=== PATIENT | female | born 1955 | race Caucasian/White ===

== ENCOUNTER → 2019-11-01 14:57 | Outpatient (BNVA) | payer BC, SELFPAY | PROVIDERS: Family Provider Nurse Practitioner; PCP Nurse Practitioner; Visit Provider Nurse Practitioner Family | DX: N30.20 Other chronic cystitis without hematuria (principal) | CPT/HCPCS: 81001 ==

== ENCOUNTER → 2020-07-23 16:05 | Outpatient (BNVA) | payer MEDICARE, BC, SELFPAY | PROVIDERS: Family Provider Nurse Practitioner; PCP Nurse Practitioner; Visit Provider Nurse Practitioner Family | DX: Z20.828 Contact with and (suspected) exposure to other viral communicable diseases (principal) | CPT/HCPCS: 87635 ==

== ENCOUNTER → 2021-02-13 11:40 | Outpatient (BNVA) | payer MEDICARE, BC, SELFPAY | PROVIDERS: Family Provider Nurse Practitioner; PCP Nurse Practitioner; Visit Provider Family Medicine | DX: E05.90 Thyrotoxicosis, unspecified without thyrotoxic crisis or storm (principal); Z00.00 Encounter for general adult medical examination without abnormal findings | CPT/HCPCS: 80053; 80061; 84439; 84443; 84481; 85025 ==

== ENCOUNTER 2021-02-25 14:42 | Outpatient (CLI) | payer MEDICARE, BC, SELFPAY ==
--- NOTE | 2021-02-25 15:30 | MM_ITS ---
WS: [id number] BILATERAL DIGITAL SCREENING MAMMOGRAPHY WITH CAD CLINICAL INFORMATION: Z12.31 - Encounter for screening mammogram for malignant neoplasm of breast HISTORY: Screening mammogram. No current complaints. COMPARISON: TECHNIQUE: Bilateral CC and MLO views. FINDINGS: Scattered fibroglandular densities bilaterally. No suspicious focal mass, asymmetry, calcifications, or architectural distortion. No evidence of malignancy. MM/[place] [id number] IMPRESSION: BI-RADS: 2-Benign FOLLOW UP: 1 Year Follow-up Recommend return to annual screening mammography.
== END 2021-02-25 14:43 | disposition home or self-care (01) ==
LOC: RADSHAW 14:49
PROVIDERS: PCP Family Medicine; Visit Provider Family Medicine
DX: Z12.31 Encounter for screening mammogram for malignant neoplasm of breast (principal)
CPT/HCPCS: 77067

== ENCOUNTER → 2021-11-13 09:03 | Outpatient (BNVA) | payer MEDICARE, BC, SELFPAY | PROVIDERS: PCP Family Medicine; Visit Provider Nurse Practitioner Family | DX: N30.20 Other chronic cystitis without hematuria (principal) | CPT/HCPCS: 81003 ==

== ENCOUNTER 2021-12-31 16:11 | Outpatient (CLI) | payer MEDICARE, BC, SELFPAY ==
--- NOTE | 2021-12-31 16:00 | MR_ITS ---
WS: [id number] MRA HEAD TECHNIQUE: Axial 3-D TOF images obtained with axial images and axial, sagittal, and coronal 2-D refor matted images. CLINICAL INFORMATION: Z98.890 - Other specified postprocedural states COMPARISON: MRI November 25, 2013 FINDINGS: Prior RIGHT pterional craniotomy with ACOM aneurysm clipping. Susceptibility artifact from aneurysm c lips obscures some images. No evidence of recurrent or residual ACOM aneurysm. Stable tiny LEFT intra cranial ICA is unchanged. Patent LEFT posterior communicating artery fills the LEFT MCA territory. No rmal vascularity to the FROYLAN and RIGHT MCA territory. Aplastic LEFT A1 segment. Dominant distal LEFT vertebral artery. Basilar artery is patent. Normal vascularity to the [employer] territ ory bilaterally. MR/MR angio head wo con [id number] IMPRESSION: 1. 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 Susceptibilit y artifact from the aneurysm clips. No evidence of recurrent or residual aneury sm. 2. Small LEFT intracranial ICA unchanged from the prior examinations. 3. Patent LEFT posterior communicating artery supplies the LEFT MCA territory unchanged. 4. No other significant changes from previous.
== END 2021-12-31 16:12 | disposition home or self-care (01) ==
LOC: RAD 16:14
PROVIDERS: PCP Family Medicine; Visit Provider Nurse Practitioner
DX: Z98.890 Other specified postprocedural states (principal); Z86.79 Personal history of other diseases of the circulatory system
CPT/HCPCS: 70544

== ENCOUNTER → 2022-02-05 13:48 | Outpatient (BNVA) | payer MEDICARE, BC, SELFPAY | PROVIDERS: PCP Family Medicine; Visit Provider Nurse Practitioner Family | DX: N30.20 Other chronic cystitis without hematuria (principal) | CPT/HCPCS: 81003; 87086; 88112 ==

== ENCOUNTER → 2022-02-10 10:45 | Outpatient (BNVA) | payer MEDICARE, BC, SELFPAY | PROVIDERS: PCP Family Medicine; Visit Provider Nurse Practitioner | DX: E05.90 Thyrotoxicosis, unspecified without thyrotoxic crisis or storm (principal); Z13.6 Encounter for screening for cardiovascular disorders | CPT/HCPCS: 80053; 80061; 84439; 84443; 84481; 85025 ==

== ENCOUNTER 2022-03-10 12:40 | Outpatient (CLI) | payer MEDICARE, BC, SELFPAY ==
[2022-03-10] MEDS: iohexol 300 mg/mL 50 mL Btl IV (12:58)
--- NOTE | 2022-03-10 13:45 | CT_ITS ---
WS: [id number] CT ABDOMEN PELVIS TECHNIQUE: Noncontrast CT of the abdomen and contrast-enhanced CT of the abdomen and pelvis with shyam nal and sagittal reformatted images. CLINICAL INFORMATION: GROSS HEMATURIA COMPARISON: None. DLP: 3127.[address] scans at [facility] use at least one of these dose optimization techniques: automated e xposure control; mA and/or kV adjustment per patient size (includes targeted exams where dose is matc hed to clinical indication); or iterative reconstruction. FINDINGS: No obstructing renal or ureteral calculi. Pelvic phleboliths. Normal renal parenchymal enhancement. B ilateral simple renal cysts the largest in the LEFT upper pole measuring 4.1 x 3.3 CM. Normal RIGHT u reteral excretion on the delayed images. Poor filling of the LEFT ureter distally with suggestion of a filling defect in the distal LEFT ureter image 69 series 6. No significant contrast distal to this area in the LEFT ureter. Recommend further evaluation with ureteroscopy. Lung bases are well aerated. Normal hepatic parenchymal enhancement. A few incidental liver cysts. No rmal gallbladder. Small cyst or hemangiomas in the spleen. Normal GE junction. Normal pancreatic pare nchymal enhancement. Adrenal glands are normal. Normal celiac and SMA. Normal portal vein and splenic vein. No periaortic lymphadenopathy. No evidence of high-grade small or large bowel obstruction. Normal lubna iber abdominal aorta. CT/CT abdomen pelvis wo/w [id number] IMPRESSION: 1. Normal bilateral renal parenchymal enhancement. 2. Bilateral renal cysts largest LEFT upper pole measuring 4.0 x 3.2 CM. 3. Suggestion of a filling defect in the distal LEFT ureter in the pelvis as d escribed above best seen on the delayed axial imaging image 69 series 6. No con trast distal to this area. Recommend further evaluation with ureteroscopy. 4. Small hepatic cysts. A few low-attenuation lesions in the spleen likely due to cysts or hemangiomas. 5. No other acute findings.
== END 2022-03-10 12:41 | disposition home or self-care (01) ==
LOC: RAD 12:42
PROVIDERS: PCP Family Medicine; Visit Provider Nurse Practitioner Family
DX: R31.0 Gross hematuria (principal); N28.1 Cyst of kidney, acquired; K76.89 Other specified diseases of liver; D73.89 Other diseases of spleen
CPT/HCPCS: 52000; 74178; 81003; 99213

== ENCOUNTER 2022-03-26 11:40 | Outpatient (CLI) | payer MEDICARE, BC, SELFPAY ==
--- NOTE | 2022-03-26 11:55 | MM_ITS ---
WS: [id number] BILATERAL 3D TOMOSYNTHESIS DIGITAL SCREENING MAMMOGRAPHY WITH CAD CLINICAL INFORMATION: Z12.39 - Encounter for other screening for malignant neop... HISTORY: Screening mammogram. No current complaints. COMPARISON: February 25, 2021 TECHNIQUE: Bilateral CC and MLO views. FINDINGS: Scattered fibroglandular densities bilaterally. 4 mm ovoid nodular density along the posterior nipple line LEFT breast measuring 4 mm Recommend further evaluation with spot compression views and ultrasound. This appears new from previo us. RIGHT breast is unremarkable and unchanged. MM/[place] [id number] IMPRESSION: BI-RADS: 0-Incomplete: Need additional imaging evaluation FOLLOW UP: Need Additional Imaging Recommend LEFT breast diagnostic mammography spot compression views and ultraso und in further evaluation.
== END 2022-03-26 11:41 | disposition home or self-care (01) ==
LOC: RAD 11:40
PROVIDERS: PCP Nurse Practitioner; Visit Provider Nurse Practitioner
DX: Z12.31 Encounter for screening mammogram for malignant neoplasm of breast (principal)
CPT/HCPCS: 77063; 77067

== ENCOUNTER 2022-04-29 09:35 | Outpatient (CLI) | payer MEDICARE, BC, SELFPAY ==
--- NOTE | 2022-04-29 09:50 | MM_ITS ---
WS: [id number] LEFT 3D TOMOSYNTHESIS DIGITAL MAMMOGRAPHY WITH CAD CLINICAL INFORMATION: R92.8 - Other abnormal and inconclusive findings on diagn... COMPARISON: 04.16 TECHNIQUE: 3 views of the left breast were obtained. FINDINGS: Scattered fibroglandular densities of the left breast. Stable previously described 4 mm ovoid nodular density along the posterior nipple line. Ultrasound is pending. ULTRASOUND BREAST LEFT TECHNIQUE: Ultrasound left breast focused area of concern. CLINICAL INFORMATION: R92.8 - Other abnormal and inconclusive findings on diagn... COMPARISON: None. FINDINGS: Ultrasound LEFT breast at the 8 and 9:00 position demonstrates incidental ductal ectasia. Debris with in a few dilated ducts likely accounts for the mammographic findings. Findings are probably benign. N o other suspicious lesions. No lesions to target for biopsy. MM/[place] [id number] IMPRESSION: BI-RADS: 3-Probably Benign FOLLOW UP: 6 Month Follow-up RECOMMEND 6 MONTH FOLLOW-UP LEFT DIAGNOSTIC MAMMOGRAPHY AND ULTRASOUND to NIKKI AGUILERA.
--- NOTE | 2022-04-29 14:42 | XR_ITS ---
WS: [email or web address] KUB, AP view, 04/29/2022 Clinical Data: stones Comparison: None. Findings: No abnormal intraabdominal masses or calcifications are seen. There is no dilatated small bowel or ev idence of obstruction. There is fecal material throughout the colon. There are phleboliths in the right side of the true pel vis. XR/XR KUB [id number] Impression: Negative KUB.
== END 2022-04-29 09:36 | disposition home or self-care (01) ==
PROVIDERS: PCP Nurse Practitioner; Referring Provider Urology; Visit Provider Nurse Practitioner
DX: R92.8 Other abnormal and inconclusive findings on diagnostic imaging of breast (principal); R92.2 Inconclusive mammogram; R31.0 Gross hematuria; N30.20 Other chronic cystitis without hematuria; R93.41 Abnormal radiologic findings on diagnostic imaging of renal pelvis, ureter, or bladder
CPT/HCPCS: 74018; 76642; 77061; 99213

== ENCOUNTER 2022-05-07 05:45 | Day surgery (SDC) | payer MEDICARE, BC, SELFPAY ==
[2022-05-06 10:14] VITALS: BMI 30.2
[2022-05-07] VITALS (8 sets, daily range): BP systolic 127–166; BP diastolic 71–96; PULSE 63–96; RESP 12–18; TEMP 36.2–36.6; O2SAT 96–100
--- NOTE | 2022-05-07 | SCC_ITS ---
Procedure done: 1. Cystoscopy with left retrograde ureteropyelogram 2. Left ureteroscopy, no stent 18.1 seconds of fluoroscopic guidance, for a cumulative dose of 3.72 mGy, was provided to Dr. Carranza by the radiology department. C-arm images of the abdomen were saved for the patient's permanent record. [facility]
--- NOTE | 2022-05-07 05:47 | SC_ITS ---
WS: [id number] C-arm fluoroscopy for left ureterogram and left renal stent insertion. Clinical Data: Left ureteral filling defect, planned ureteroscopy Comparison: None. Findings: Dr. Carranza performed a left ureterogram and insertion of left ureteral catheter. SC/C-arm FL for Urology Impression: Left ureterogram.
[2022-05-07] MEDS: sodium chloride 0.9% 1,000 ML 30 ML IV (06:25)
[2022-05-07] MEDS: diphenhydrAMINE 50 mg/mL SDV 1mL 12.5 MG IVP (06:42)
--- NOTE | 2022-05-07 06:50 | W.PM.OPSUD ---
Surgery/Procedure H&P Update DATE OF PROCEDURE: May 07, 2022 DATE H&P PERFORMED: 04/29/22 H&P UPDATE INFORMATION: I have reviewed H&P completed within last 30 days, I have examined patient prior to procedure, No changes to prior documentation and H&P is in [facility] [place] on date indicated PREOP DIAGNOSIS: Filling defect left distal ureter, gross hematuria PLANNED PROCEDURE: Operation Date: 05/07/22 07:00 Proposed Procedures p CYSTOSCOPY LEFT RETROGRADE URETEROSCOPY POSSIBLE BIOPSY FULGURATION STENT [id number],R310.0R93.41(Not Applicable) - Brennan Carranza MD s Retrograde Pyelogram(Left) - Brennan Carranza MD s Ureteroscopy(Left) - Brennan Carranza MD s Ureteral Stent Placement(Left) - Brennan Carranza MD
--- NOTE | 2022-05-07 06:54 | P.ANESASSM_ITS ---
Pre-Anesthetic Assessment Height/Weight: Height 1.57 m Weight 74.843 kg Temp Pulse Resp BP Pulse Ox 97.8 F 75 16 166/92 96 05/07/22 06:10 05/07/22 06:10 05/07/22 06:10 05/07/22 06:10 05/07/22 06:10 Preop Diagnosis: Filling defect left distal ureter, gross hematuria Operation Date: 05/07/22 07:00 Proposed Procedures p CYSTOSCOPY LEFT RETROGRADE URETEROSCOPY POSSIBLE BIOPSY FULGURATION STENT [id number],R310.0R93.41(Not Applicable) - Brennan Carranza MD s Retrograde Pyelogram(Left) - MD magy Brooks Ureteroscopy(Left) - Brennan Carranza MD s Ureteral Stent Placement(Left) - Brennan Carranza MD Familial anesthetic complications: PONV per patient Was Beta Hudson taken within 24 hours: N/A Was Clonidine taken within 24 hours: N/A Last intake: Intake Last Liquid Date 05/07/22 Last Liquid Time 00:00 Last Solid Date 05/06/22 Last Solid Time 19:00 Social No alcohol and No tobacco Exam alert, oriented x 3, clear to auscultation bilaterally and regular rate & rhythm Airway Submandibular: within normal limits Cervical ROM: within normal limits Mallampati: Class II Dentition: chipped Comments: Comments: Multiple chipped upper central and lateral incisors Pulmonary None reported CV/HEM None reported METS > 4 Hematuria Hepatic None reported GI None reported Metabolic Thyroid Disease (Long standing well controlled hyperthyroidism ) [facility] [place] None reported Neuropsych None reported Anesthetic Plan ASA status: 2 Anesthesia: Anesthesia Evaluation and General Other: We discussed risk and benefits of general anesthesia including PONV, sore throat (sometimes severe), corneal abrasion, positioning and peripheral nerve injuries, life threatening allergic reaction, post operative ICU admission requiring prolonged intubation, aspiration, stroke, heart attack, , and rare incidences of recall. Patient consents to proceed with general anesthesia. Risk of > 500 ml blood loss (7ml/kg in children): No Medications/Allergies Home Medications Medication Instructions Recorded Confirmed Last Taken Type Livan-Assimilate 500 mg PO DAILY 11/01/19 05/07/22 05/06/22 History Nuero Mag 288 mg PO DAILY 11/01/19 05/07/22 05/06/22 History PS Caps 100 mg PO DAILY 11/01/19 05/07/22 05/06/22 History cholecalciferol (vitamin D3) 125 5,000 unit PO DAILY 11/01/19 05/07/22 05/06/22 History mcg (5,000 unit) capsule salmon oil 1,000 mg-omega-3 fatty 1 cap PO DAILY 11/01/19 05/07/22 04/30/22 History acids 210 mg capsule turmeric root extract 500 mg 500 mg PO DAILY cap 11/01/19 05/07/22 05/06/22 History capsule Magnesium Taurate 250 mg PO DAILY 11/14/20 05/07/22 05/06/22 History glutamine 500 mg capsule 500 mg PO DAILY 11/14/20 05/07/22 05/06/22 History (L-Glutamine) methimazole 5 mg tablet 5 mg PO DAILY #90 tab 02/11/22 05/07/22 05/06/22 Rx cefuroxime axetil 500 mg tablet 500 mg PO BID #60 tab 02/20/22 05/07/22 05/06/22 Rx vitamin B complex 1 cap PO DAILY 05/07/22 05/07/22 05/06/22 History Allergies Allergy/AdvReac Type Severity Reaction Status Date / Time codeine Allergy ADR-Nausea Verified 05/07/22 06:00 divalproex sodium Allergy KIDNEY PAIN Verified 05/07/22 06:00 [From Depakote] hydrocodone Allergy NAUSEA, Verified 05/07/22 06:00 ALTERED MENTAL STATUS sulfamethoxazole Allergy ALGY-Rash Verified 05/07/22 06:00 [From Septra] trimethoprim [From Septra] Allergy ALGY-Rash Verified 05/07/22 06:00 Current Medications Generic Name Dose Route Start Last Admin Trade Name Freq PRN Reason Stop Dose Admin Diphenhydramine HCl 12.5 mg 05/07/22 05:48 05/07/22 06:42 Diphenhydramine 50 Mg/Ml Sdv 1ml IVP 12.5 mg ONCE PRN Administration ANESTHESIA PFSH Anesthesia Medical History Chronic cystitis Occasional remote acute cystitis episodes with development of more chronic cystitis type symptoms summer 2015. Marked improvement on antibiotics but not complete resolution and increasing symptoms over time off of antibiotics. Significant delay prior to treatment. Glaucoma Diagnosed in 2019 and is controlled with eyedrops. She does follow-up with an insurance checker. Gross hematuria Hyperthyroidism Currently on methimazole prescribed by Dr. Adria Hernandez in [place] No pertinent past medical history Patient denies history of: PE/DVT/clotting disorders, asthma, lung, liver heart, kidney disease, or diabetes. PCP: FERNANDO Mccoy Surgical History History of surgery for cerebral aneurysm 2011--open surgery to her skull performed in [facility] History of tonsillectomy At age 20 Family History Mother Hypertension Heart disease Breast cancer Diagnosed around age 70 Father Hypertension Sister Hypertension Breast cancer Diagnosed after age 50 Colon cancer Brother Hypertension Hyperlipidemia Denies family history of Ovarian cancer Diabetes Uterine cancer Thyroid condition Stroke Social History Smoking and tobacco status: never smoked Second hand smoke exposure: No Smoking risk assessment/counseling performed?: No Alcohol intake: never Desire information about alcohol rehabilitation?: No Counseling given: No Desire information about substance/drug rehabilitation?: No Counseling given: No Adopted: No Caregiver/support person: No Lives independently: Yes Household members: spouse Marital status: service: No Current occupational status: retired Current occupational exposures/hazards: No History of recent travel: No Current gender identity: Female Additional social history: - Tobacco Use: Denies current or past use Drug Use: Denies Alcohol Use: Denies Work/Study Status: Retired RN; used to work as a school nurse Data Anesthesia Cardiac Studies: No Data to Display
--- NOTE | 2022-05-07 06:57 | PM.OP ---
Operative Report Date of procedure: May 07, 2022 Pre-op diagnosis: Filling defect left distal ureter, gross hematuria Post-op diagnosis: Normal left distal ureter on ureteroscopy and retrograde Procedure done: 1. Cystoscopy with left retrograde ureteropyelogram 2. Left ureteroscopy, no stent Implants: None Specimens removed/disposition: None Pathology: None Surgeon: Tere Anesthesia: General Estimated blood loss: None Urine output: Not measured Complications: None Findings: 1. Normal left retrograde ureteropyelogram and ureteroscopy. No evidence of intraluminal mass or lesion. Brief History: Cheri is a very pleasant 66-year-old white female with a history of CHRONIC CYSTITIS and subsequent history of GROSS HEMATURIA. Traditional work-up was performed regarding the hematuria. Cystoscopy was normal. Physical exam was normal. Cytology and culture were nonpathologic. CT scan no was interpreted as having a soft tissue filling defect in the left ureter. This was not a definitive finding but certainly cannot be ruled out and for that reason she is admitted now for outpatient cystoscopy, retrograde, ureteroscopy, and possible biopsy. Procedure: After routine preoperative evaluation examination and obtaining of informed consent she was taken to the operating suite on 05/07/2022 where general anesthesia was administered without difficulty after appropriate timeout was performed, SCDs confirmed to be functioning, preoperative antibiotics administered, beta-dash protocol confirmed. Prepped and draped in usual sterile fashion in dorsolithotomy position paying careful attention to avoiding pressure points. 21 Taiwanese cystoscope with 30 degree lens was introduced into urethra meatus and advanced into the bladder under videoscopy. Bladder was systematically examined and again found to be normal. An 8 Taiwanese cone-tip catheter was intubated into the left ureteral orifice for left retrograde ureteropyelogram demonstrating: Grossly normal left ureter. A flexible tip guidewire was then passed up the left ureter and a 7 Taiwanese offset semirigid ureteroscope was easily advanced over the guidewire into the distal ureter and advanced to about the level of the pelvic vessels well above the area of concern. The wire was removed and then the ureter distal to that point was carefully inspected and there was no mucosal abnormality identified. Scope was removed and then repassed confirming both an entry and exit to have no concerning findings. The scope was removed, the bladder drained, the procedure completed. She tolerated the procedure well without complications and was awakened in the operating room and returned to PACU in stable condition. PLANS: 1. Anticipate discharge from outpatient surgery 2. Provide some pain medication if needed for renal colicky symptoms that might occur related to distal ureteral edema from the scope 3. Follow-up in about 3 to 4 months in the office in follow-up of cystitis.
[2022-05-07] MEDS: levofloxacin-dextrose 5 % 500 MG/100 ML PREMIX 100 MG IV (07:00)
[2022-05-07] MEDS: iohexol 300 mg/mL 50 mL Btl XX (07:27)
--- NOTE | 2022-05-07 12:44 | ANE.PACU2 ---
Inpatient post-anesthesia follow up: Airway intact: Yes Vital signs: Temperature 98 F Pulse Rate 63 Respiratory Rate 16 Blood Pressure 141/71 Pulse Oximetry 96 Oxygen Delivery Me thod Room Air Oxygen Flow Rate 6 Fraction of Inspir ed Oxygen Hydration adequate: Yes Nausea and vomiting: No Pain level: 1 Mental status: Baseline
== END 2022-05-07 09:00 | disposition home or self-care (01) ==
PROVIDERS: PCP Nurse Practitioner; Visit Provider Urology
PROC: 0TJB8ZZ Inspection of Bladder, Via Natural or Artificial Opening Endoscopic (ICD-10-PCS; CPT 52000; principal; 2022-05-07 07:00)
PROC: (CPT 74420; 2022-05-07 07:00)
PROC: 0TJ98ZZ Inspection of Ureter, Via Natural or Artificial Opening Endoscopic (ICD-10-PCS; CPT 52351; 2022-05-07 07:00)
DX: R31.0 Gross hematuria (principal); R93.41 Abnormal radiologic findings on diagnostic imaging of renal pelvis, ureter, or bladder; E03.9 Hypothyroidism, unspecified
CPT/HCPCS: 52351; 76000; J1100; J1200; J1956; J2405; J2704; J3010; J3490; J7030; Q9967

== ENCOUNTER → 2022-06-09 12:03 | Outpatient (BNVA) | payer MEDICARE, BC, SELFPAY | PROVIDERS: PCP Nurse Practitioner; Visit Provider Nurse Practitioner Family | DX: M16.11 Unilateral primary osteoarthritis, right hip (principal); M25.551 Pain in right hip | CPT/HCPCS: 73502 ==

== ENCOUNTER → 2022-06-12 14:47 | Outpatient (BNVA) | payer MEDICARE, BC, SELFPAY | PROVIDERS: PCP Nurse Practitioner; Visit Provider Urology | DX: N30.20 Other chronic cystitis without hematuria (principal); R31.0 Gross hematuria | CPT/HCPCS: 81003; 99213 ==

== ENCOUNTER → 2022-06-20 09:42 | Outpatient (BNVA) | payer MEDICARE, BC, SELFPAY | PROVIDERS: PCP Nurse Practitioner; Visit Provider Orthopaedic Surgery | DX: M16.11 Unilateral primary osteoarthritis, right hip (principal) | CPT/HCPCS: 99202 ==

== ENCOUNTER 2022-07-31 07:54 | Outpatient (CLI) | payer MEDICARE, BC, SELFPAY ==
--- NOTE | 2022-07-31 08:00 | MR_ITS ---
WS: [id number] MRI RIGHT HIP without CONTRAST. COMPARISON: Radiographs 06/09/2022 Multiplanar, multisequence imaging is performed without contrast. Moderate narrowing with loss of cartilage and mild osteophytosis at the RIGHT hip joint. There is a s mall amount of marrow edema in the superior posterior RIGHT femoral head with loss of cartilage and f issuring along the cortical surface. There is a small subchondral cyst in the superior acetabulum. Ad ditional subcortical edema and cystic changes along the medial and posterior acetabulum. There is vinicius y mild increased signal involving the RIGHT lateral labrum suspicious for focal tear.There is a small hypertrophic osteophyte extending from the anterior RIGHT femoral head and neck junction. Osteophyti c protrusion measures 10 x 7 mm. There is only mild narrowing of the LEFT hip joint. No associated marrow edema. SI joints are negativ e. No pelvic mass. MR/MR hip RT wo con* [id number] IMPRESSION: 1. Moderate osteoarthritic changes involving the RIGHT hip joint. Loss of cart ilage with marrow edema and small subchondral cysts. 2. Additional subchondral cystic changes involving the acetabulum. 3. Hypertrophic osteophyte measuring 10 x 7 mm projects anterior from the RIGH T femoral head neck junction. 4. Small labral tear versus intrasubstance degeneration.
== END 2022-07-31 07:55 | disposition home or self-care (01) ==
LOC: RAD 07:55
PROVIDERS: PCP Nurse Practitioner; Visit Provider Nurse Practitioner Family
DX: M16.11 Unilateral primary osteoarthritis, right hip (principal); M25.751 Osteophyte, right hip
CPT/HCPCS: 73721

== ENCOUNTER → 2022-08-28 12:08 | Outpatient (BNVA) | payer MEDICARE, BC, SELFPAY | PROVIDERS: PCP Nurse Practitioner; Visit Provider Nurse Practitioner | DX: E05.90 Thyrotoxicosis, unspecified without thyrotoxic crisis or storm (principal) | CPT/HCPCS: 84443 ==

== ENCOUNTER → 2022-11-11 09:22 | Outpatient (BNVA) | payer MEDICARE, BC, SELFPAY | PROVIDERS: PCP Nurse Practitioner; Visit Provider Urology | DX: N30.20 Other chronic cystitis without hematuria (principal); R31.0 Gross hematuria | CPT/HCPCS: 81003; 99213 ==

== ENCOUNTER 2022-12-10 08:34 | Outpatient (CLI) | payer MEDICARE, OTHER, SELFPAY ==
--- NOTE | 2022-12-10 08:51 | MM_ITS ---
WS: [id number] LEFT 3D TOMOSYNTHESIS DIGITAL MAMMOGRAPHY WITH CAD CLINICAL INFORMATION: R92.8 - Other abnormal and inconclusive findings on diagn... HISTORY: Six-month follow-up COMPARISON: April 29, 2022 TECHNIQUE: 3 views of the left breast were obtained. FINDINGS: Scattered fibroglandular densities of the left breast. Focal 4 mm previously described ovoid nodular density difficult to discern today. Breast parenchyma is otherwise unchanged in appearance. Persisten t ductal ectasia deep to the LEFT areola. Ultrasound described below. ULTRASOUND BREAST LEFT TECHNIQUE: Ultrasound left breast focused area of concern. CLINICAL INFORMATION: R92.8 - Other abnormal and inconclusive findings on diagn... FINDINGS: Ultrasound LEFT breast 8:00 to 9 position again demonstrates ductal ectasia with intraductal debris. Hypoechoic ovoid lesion previously described has slightly increased in size today and appears more we ll circumscribed. Today this measures 8.4 x 6.4 x 4.4 mm compared to 6.9 x 4.5 x 4.8 mm. This is tall er than wide on some images and is indeterminate. Considering persistence and increase in size recommend further evaluation with ultrasound-guided biop sy. MM/[place] [id number] IMPRESSION: BI-RADS: 4-Suspicious Finding-Biopsy Should Be Considered FOLLOW UP: US Guided Biopsy Recommended Recommend ultrasound-guided biopsy of the hypoechoic LEFT breast lesion at the 9:00 position.
--- NOTE | 2022-12-10 09:30 | US_ITS ---
WS: [email or web address] LEFT 3D TOMOSYNTHESIS DIGITAL MAMMOGRAPHY WITH CAD CLINICAL INFORMATION: R92.8 - Other abnormal and inconclusive findings on diagn... HISTORY: Six-month follow-up COMPARISON: April 29, 2022 TECHNIQUE: 3 views of the left breast were obtained. FINDINGS: Scattered fibroglandular densities of the left breast. Focal 4 mm previously described ovoid nodular density difficult to discern today. Breast parenchyma is otherwise unchanged in appearance. Persisten t ductal ectasia deep to the LEFT areola. Ultrasound described below. ULTRASOUND BREAST LEFT TECHNIQUE: Ultrasound left breast focused area of concern. CLINICAL INFORMATION: R92.8 - Other abnormal and inconclusive findings on diagn... FINDINGS: Ultrasound LEFT breast 8:00 to 9 position again demonstrates ductal ectasia with intraductal debris. Hypoechoic ovoid lesion previously described has slightly increased in size today and appears more we ll circumscribed. Today this measures 8.4 x 6.4 x 4.4 mm compared to 6.9 x 4.5 x 4.8 mm. This is tall er than wide on some images and is indeterminate. Considering persistence and increase in size recommend further evaluation with ultrasound-guided biop sy. US/US breast LT limited* [id number] IMPRESSION: BI-RADS: 4-Suspicious Finding-Biopsy Should Be Considered FOLLOW UP: US Guided Biopsy Recommended Recommend ultrasound-guided biopsy of the hypoechoic LEFT breast lesion at the 9:00 position.
== END 2022-12-10 08:35 | disposition home or self-care (01) ==
LOC: RAD 08:41
PROVIDERS: PCP Nurse Practitioner; Visit Provider Nurse Practitioner
DX: R92.8 Other abnormal and inconclusive findings on diagnostic imaging of breast (principal); N63.25 Unspecified lump in the left breast, overlapping quadrants
CPT/HCPCS: 76642; 77061; G0279

== ENCOUNTER 2023-01-13 08:21 | Outpatient (CLI) | payer MEDICARE, OTHER, SELFPAY ==
--- NOTE | 2023-01-13 08:39 | US_ITS ---
WS: [email or web address] ULTRASOUND-GUIDED LEFT BREAST BIOPSY CLINICAL INFORMATION: R92.8 - Other abnormal and inconclusive findings on diagn... COMPARISON: December 10, 2022 FINDINGS: The procedure including risks, benefits, and complications were discussed with the patient who agreed to proceed. Using sterile technique patient was prepped and draped in the usual sterile fashion. Aft er 1% lidocaine utilizing real-time ultrasound guidance 3 14-gauge cores were obtained of the LEFT br east lesion at the 9 o'clock position. Lesion subsequently collapsed after biopsy. Titanium clip was placed in the biopsy cavity. No immediate complications. Pathology demonstrates - Benign breast tissue with plausible cyst contents and debris. - No malignancy identified. US/[place] [id number] IMPRESSION: 1. Uncomplicated ultrasound-guided LEFT breast biopsy subareolar 2. The pathology demonstrates benign breast tissue with cyst contents and debr is. No malignancy identified. BI-RADS: 2-Benign FOLLOW UP: 1 Year Follow-up
== END 2023-01-13 08:22 | disposition home or self-care (01) ==
LOC: RAD 08:25
PROVIDERS: PCP Nurse Practitioner; Visit Provider Nurse Practitioner
DX: N60.02 Solitary cyst of left breast (principal); R92.8 Other abnormal and inconclusive findings on diagnostic imaging of breast
CPT/HCPCS: 19083; 88305

== ENCOUNTER → 2023-04-16 09:59 | Outpatient (BNVA) | payer MEDICARE, OTHER, SELFPAY | PROVIDERS: PCP Nurse Practitioner; Visit Provider Nurse Practitioner | DX: E05.90 Thyrotoxicosis, unspecified without thyrotoxic crisis or storm (principal); Z13.6 Encounter for screening for cardiovascular disorders | CPT/HCPCS: 80053; 80061; 84443 ==

== ENCOUNTER → 2023-11-12 09:58 | Outpatient (BNVA) | payer MEDICARE, OTHER, SELFPAY | PROVIDERS: PCP Nurse Practitioner; Visit Provider Nurse Practitioner | DX: N30.20 Other chronic cystitis without hematuria (principal); E05.90 Thyrotoxicosis, unspecified without thyrotoxic crisis or storm; Z79.899 Other long term (current) drug therapy | CPT/HCPCS: 80053; 80061; 84443 ==

== ENCOUNTER 2023-12-11 09:24 | Outpatient (CLI) | payer MEDICARE, OTHER, SELFPAY ==
--- NOTE | 2023-12-11 09:31 | MM_ITS ---
WS: [email or web address] Bilateral screening 3D tomosynthesis digital mammogram, 12/11/2023 Clinical Data: Z12.31 - Encounter for screening mammogram for malignant ... Comparison: 12/10/2022, 04/29/2022, 03/26/2022, 02/25/2021, 04/08/2019, 04/15/2013, 05/15/2011, 05/13/2010, 05/16. Findings: The breast parenchymal pattern shows fibroglandular tissue. No spiculated masses or clustered calcifi cations are seen. There are no secondary signs of carcinoma. Impression: 1. Negative bilateral mammogram unchanged. 2. Recommend annual screening mammograms. MM/[place] [id number] BIRADS: 1-Negative FOLLOW UP: 1 Year Follow-up The CAD bad cloth checker was used.
== END 2023-12-11 09:25 | disposition home or self-care (01) ==
LOC: RAD 09:25
PROVIDERS: PCP Nurse Practitioner; Visit Provider Nurse Practitioner
DX: Z12.31 Encounter for screening mammogram for malignant neoplasm of breast (principal)
CPT/HCPCS: 77063; 77067

== ENCOUNTER → 2024-06-02 15:54 | Outpatient (BNVA) | payer MEDICARE, OTHER, SELFPAY | PROVIDERS: PCP Nurse Practitioner; Visit Provider Nurse Practitioner | DX: Z13.6 Encounter for screening for cardiovascular disorders (principal); E05.90 Thyrotoxicosis, unspecified without thyrotoxic crisis or storm | CPT/HCPCS: 80053; 80061; 82607; 84443 ==

== ENCOUNTER 2024-06-03 09:31 | Outpatient (CLI) | payer MEDICARE, OTHER, SELFPAY ==
--- NOTE | 2024-06-03 09:35 | XR_ITS ---
WS: [email or web address] XR thoracic spine 3V* [id number] REASON FOR EXAM: M54.2 - Cervicalgia FINDINGS: No vertebral body abnormality. There is moderate degenerative spondylosis in the midthoracic spine with mild disc space narrowing an d endplate sclerosis and osteophytosis. This is most severe at T7-T8 and T8-T9. XR/XR thoracic spine 3V* [id number] IMPRESSION: Degenerative spondylosis as above.
--- NOTE | 2024-06-03 09:35 | XR_ITS ---
WS: [email or web address] XR cervical spine 3V* [id number] REASON FOR EXAM: M54.2 - Cervicalgia FINDINGS: Relatively normal lordosis of the cervical spine. No significant abnormality of the odontoid and vertebral bodies. Moderate narrowing of the C4-C5 C5-C6 and C6-C7 disc spaces. Endplate sclerosis and osteophytosis C4- C7. 2.5 mm of anterolisthesis of C3 in relation to C4. 2 mm of anterolisthesis of C5 in relation to C4. Significant degenerative arthropathy in the C2-C3 facet joints. XR/XR cervical spine 3V* [id number] IMPRESSION: Degenerative spondylosis of the cervical spine as above.
== END 2024-06-03 09:32 | disposition home or self-care (01) ==
LOC: RAD 09:32
PROVIDERS: PCP Nurse Practitioner; Visit Provider Nurse Practitioner
DX: M47.814 Spondylosis without myelopathy or radiculopathy, thoracic region (principal); M25.78 Osteophyte, vertebrae; M51.36 Other intervertebral disc degeneration, lumbar region; M48.02 Spinal stenosis, cervical region; M43.12 Spondylolisthesis, cervical region; M47.892 Other spondylosis, cervical region
CPT/HCPCS: 72040; 72072

== ENCOUNTER 2024-06-10 06:00 | Outpatient (RCR) | payer MEDICARE, OTHER, SELFPAY | END 2024-06-25 23:59 | disposition home or self-care (01) | LOC: TPT 06:00 | PROVIDERS: PCP Nurse Practitioner; Visit Provider Nurse Practitioner | DX: M50.30 Other cervical disc degeneration, unspecified cervical region (principal) | CPT/HCPCS: 97110; 97140; 97162 ==

== ENCOUNTER 2024-06-26 06:00 | Outpatient (RCR) | payer MEDICARE, OTHER, SELFPAY | END 2024-07-25 23:59 | disposition home or self-care (01) | LOC: TPT 06:00 | PROVIDERS: PCP Nurse Practitioner; Visit Provider Nurse Practitioner | DX: M50.30 Other cervical disc degeneration, unspecified cervical region (principal) | CPT/HCPCS: 97110; 97140 ==

== ENCOUNTER 2024-07-26 06:00 | Outpatient (RCR) | payer MEDICARE, OTHER, SELFPAY | END 2024-08-25 23:59 | disposition home or self-care (01) | LOC: TPT 06:00 | PROVIDERS: PCP Nurse Practitioner; Visit Provider Nurse Practitioner | DX: M50.30 Other cervical disc degeneration, unspecified cervical region (principal) | CPT/HCPCS: 97110 ==

== ENCOUNTER 2024-08-26 06:00 | Outpatient (RCR) | payer MEDICARE, OTHER, SELFPAY | END 2024-09-24 23:59 | disposition home or self-care (01) | LOC: TPT 06:00 | PROVIDERS: PCP Nurse Practitioner; Visit Provider Nurse Practitioner | DX: M50.30 Other cervical disc degeneration, unspecified cervical region (principal) | CPT/HCPCS: 97110 ==

== ENCOUNTER → 2024-12-22 10:18 | Outpatient (BNVA) | payer MEDICARE, OTHER, SELFPAY | PROVIDERS: PCP Nurse Practitioner; Visit Provider Nurse Practitioner | DX: E05.90 Thyrotoxicosis, unspecified without thyrotoxic crisis or storm (principal); I10 Essential (primary) hypertension | CPT/HCPCS: 80053; 84443; 85025 ==

== ENCOUNTER 2024-12-30 12:03 | Outpatient (CLI) | payer MEDICARE, OTHER, SELFPAY ==
--- NOTE | 2024-12-30 12:15 | MR_ITS ---
WS: [id number] MRI HEAD WITHOUT CONTRAST TECHNIQUE: Sagittal T1, T2 axial, T2 axial FLAIR, axial and coronal T1 images, axial susceptibility weighted imaging, axial diffusion weighted images, and coronal T2 images were obtained. CLINICAL INFORMATION: G35 - Multiple sclerosis COMPARISON: MRI 2012 FINDINGS: No evidence of restricted diffusion to suggest acute ischemia. Ventricular system and basilar cisterns are patent. 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 Susceptibility artifact degrades some images. Moderate patchy supratentorial mainly periventricular and pericallosal white matter changes similar in appearance compared to 2012. Mild patchy white matter changes in the mauricio are similar in appearance. Normal posterior fossa. Tiny LEFT ICA flow void at the skull base is unchanged. Mild parenchymal volume loss. Mild T1 hypointense lesion load. No hemosiderin on the susceptibility weighted images. Paranasal sinuses and mastoid air cells are well aerated. Normal posterior nasopharynx. Temporal lobes hippocampal formations are normal in appearance. 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 MR/MR head wo con* [id number] IMPRESSION: 1. No evidence of restricted diffusion to suggest acute ischemia. 2. Mild to moderate patchy supratentorial white matter changes not significant ly progressed since 2012 compatible with history of demyelinating disease and s mall vessel changes. 3. 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 4. 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 5. No hemosiderin on susceptibility-weighted images. 6. Tiny LEFT ICA at the skull base is unchanged 7. No other acute findings.
== END 2024-12-30 12:04 | disposition home or self-care (01) ==
LOC: RAD 12:03
PROVIDERS: PCP Nurse Practitioner; Visit Provider Nurse Practitioner
DX: G35 Multiple sclerosis (principal); R90.89 Other abnormal findings on diagnostic imaging of central nervous system; Z98.890 Other specified postprocedural states; G93.89 Other specified disorders of brain
CPT/HCPCS: 70551

== ENCOUNTER → 2025-06-22 13:46 | Outpatient (BNVA) | payer MEDICARE, OTHER, SELFPAY | PROVIDERS: PCP Nurse Practitioner; Visit Provider Nurse Practitioner | DX: I10 Essential (primary) hypertension (principal); E55.9 Vitamin D deficiency, unspecified; E05.90 Thyrotoxicosis, unspecified without thyrotoxic crisis or storm | CPT/HCPCS: 80053; 80061; 82306; 82607; 84443 ==

== ENCOUNTER 2025-07-03 08:19 | Outpatient (CLI) | payer MEDICARE, OTHER, SELFPAY ==
--- NOTE | 2025-07-03 08:30 | US_ITS ---
WS: [id number] ULTRASOUND SOFT TISSUES LEFT upper extremity HISTORY: R22.32 - Localized swelling, mass and lump, left upper limb COMPARISON: None available. TECHNIQUE: 2-D and color Doppler imaging is submitted. Palpable area in the LEFT upper extremity corresponds to a hyperechoic mass measuring 0.9 x 0.7 x 0.6 cm. Most consistent with a lipoma. No additional abnormalities. US/US soft tissue/extremity [id number] IMPRESSION: Palpable area LEFT upper extremity is most consistent with a small lipoma.
== END 2025-07-03 08:20 | disposition home or self-care (01) ==
LOC: RAD 08:20
PROVIDERS: PCP Nurse Practitioner; Visit Provider Nurse Practitioner
DX: R22.32 Localized swelling, mass and lump, left upper limb (principal)
CPT/HCPCS: 76882

== ENCOUNTER 2025-07-05 11:41 | Outpatient (CLI) | payer MEDICARE, OTHER, SELFPAY ==
--- NOTE | 2025-07-05 11:40 | MM_ITS ---
WS: [id number] BILATERAL 3D TOMOSYNTHESIS DIGITAL SCREENING MAMMOGRAPHY WITH CAD CLINICAL INFORMATION: Z12.31 - Encounter for screening mammogram for malignant ... HISTORY: Screening mammogram. No current complaints. COMPARISON: 2023 TECHNIQUE: Bilateral CC and MLO views. FINDINGS: Scattered fibroglandular densities bilaterally. No suspicious focal mass, asymmetry, calcifications, or architectural distortion. No evidence of malignancy. Stable biopsy clip LEFT breast. Benign calcification LEFT breast. MM/MM scr tomosynthesis [id number] IMPRESSION: DENSITY: There are scattered areas of fibroglandular density. BI-RADS: 2 - Benign. FOLLOW UP: 1 Year Follow-up Recommend return to annual screening mammography.
== END 2025-07-05 11:42 | disposition home or self-care (01) ==
LOC: RAD 11:41
PROVIDERS: PCP Nurse Practitioner; Visit Provider Nurse Practitioner
DX: Z12.31 Encounter for screening mammogram for malignant neoplasm of breast (principal); R92.323 Mammographic fibroglandular density, bilateral breasts
CPT/HCPCS: 77063; 77067